=== PATIENT | male | born 1995 | race Two or more races ===

== ENCOUNTER 2017-09-19 10:33 | Emergency (ER) | payer BC, MEDICAID ==
--- NOTE | 2017-09-19 10:39 | EDM.PDOC ---
ED HPI GENERAL MEDICAL PROBLEM - General Stated Complaint: FLU Time Seen by Provider: 09/19/17 10:33 Source of Information: Reports: Patient History Limitations: Reports: No Limitations - History of Present Illness INITIAL COMMENTS - FREE TEXT/NARRATIVE: 22 y.o.w.m came to the ed due to flu like symptoms with a running nose. Pt was exposed to "sick people". No F/C/N/V or any other acute medical issues. Temp 37.1 BP 154/73, RR 20 Pulse ox 99% on RA Pulse 78 Onset: Today Onset Date: 09/18/17 Onset Time: 08:00 Duration: Day(s):, Intermittent Location: Reports: Chest, Generalized Quality: Reports: Other (congested) Severity: Mild Improves with: Reports: Rest Worsens with: Reports: Movement Context: Reports: Sick Contact Associated Symptoms: Reports: No Other Symptoms - Related Data Allergies Allergy/AdvReac Type Severity Reaction Status Date / Time No Known Allergies Allergy Verified 09/19/17 10:52 Home Meds: Home Meds Oseltamivir [Tamiflu] 75 mg PO BID #9 cap 09/19/17 [Rx] ED ROS GENERAL - Review of Systems Review Of Systems: See Below Constitutional: Reports: No Symptoms HEENT: Reports: Rhinitis Respiratory: Reports: No Symptoms Cardiovascular: Reports: No Symptoms Endocrine: Reports: No Symptoms GI/Abdominal: Reports: No Symptoms : Reports: No Symptoms Musculoskeletal: Reports: No Symptoms Skin: Reports: No Symptoms Neurological: Reports: No Symptoms Psychiatric: Reports: No Symptoms Hematologic/Lymphatic: Reports: No Symptoms Immunologic: Reports: No Symptoms ED EXAM, GENERAL - Physical Exam Exam: See Below Exam Limited By: No Limitations General Appearance: Alert, WD/WN, No Apparent Distress Eye Exam: Bilateral Eye: Normal Inspection Ears: Normal External Exam Ear Exam: Bilateral Ear: Auricle Normal Nose: Normal Inspection, Normal Mucosa Throat/Mouth: Normal Inspection Head: Other (nasal congestion) Neck: Normal Inspection Respiratory/Chest: No Respiratory Distress, Lungs Clear, Normal Breath Sounds, Chest Non-Tender Cardiovascular: Normal Peripheral Pulses, Regular Rate, Rhythm, No Edema, No Gallop Peripheral Pulses: 1+: Radial (L) GI/Abdominal: Normal Bowel Sounds, Soft (Male) Exam: Deferred Rectal (Males) Exam: Deferred Back Exam: Normal Inspection, Full Range of Motion Extremities: Normal Inspection, Normal Range of Motion Neurological: Alert, Oriented, CN II-XII Intact, Normal Cognition, Normal Gait Psychiatric: Normal Affect, Normal Mood Skin Exam: Warm, Dry, Intact, Normal Color, No Rash Lymphatic: No Adenopathy Course - Vital Signs Text/Narrative:: 22 y.o.w.m came to the ed due to flu like symptoms with a running nose. Pt was exposed to "sick people". No F/C/N/V or any other acute medical issues. Temp 37.1 BP 154/73, RR 20 Pulse ox 99% on RA Pulse 78 PE: WNWD W M NAD with nasal congestion Labs: Influenza A test was positive. Impression: Nasal congestion, Influenza A pos Tx; 75 mg Tamiflu Reexam:Improved Plan: D/C with instructions Last Recorded V/S: Last Vital Signs Temp 36.8 C 09/19/17 11:45 Pulse 70 09/19/17 11:45 Resp 18 09/19/17 11:45 BP 141/64 H 09/19/17 11:45 Pulse Ox 98 09/19/17 11:45 - Orders/Labs/Meds Meds: Medications Discontinued Medications Generic Name Dose Route Start Last Admin Trade Name Freq PRN Reason Stop Dose Admin Oseltamivir Phosphate 75 mg 09/19/17 11:26 09/19/17 11:47 Tamiflu PO 09/19/17 11:27 75 mg ONETIME ONE Administration Departure - Departure Time of Disposition: 11:27 Disposition: Home, Self-Care 01 Condition: Good Clinical Impression: Influenza A - Discharge Information Prescriptions: Oseltamivir [Tamiflu] 75 mg PO BID #9 cap Instructions: Influenza, Adult, [id number] Referrals: PCP,None [Primary Care Provider] - Forms: ED Department Discharge Additional Instructions: Please increase water intake, please take tamilfu as
[2017-09-19] MEDS: Oseltamivir 75 MG Cap PO ONE (11:47)
== END 2017-09-19 11:55 | disposition home or self-care (01) ==
LOC: FB.ED 10:33
DX: J10.1 Influenza due to other identified influenza virus with other respiratory manifestations (principal)
CPT/HCPCS: 87804; 99283; A9270